=== PATIENT | female | born 1955 | race American Indian/Alaskan Native ===

== ENCOUNTER 2018-10-02 09:51 | Inpatient (IN) | payer OTHER ==
--- NOTE | 2018-10-02 10:49 | XRay Report ---
CHEST 1 VIEW INDICATION / CLINICAL INFORMATION: Chest Pain. COMPARISON: None available. FINDINGS: SUPPORT DEVICES: None. HEART / MEDIASTINUM: Moderately enlarged LUNGS / PLEURA: There is venous congestion with interstitial edema and trace effusions likely due to developing heart failure. No pneumothorax. ADDITIONAL FINDINGS: No significant additional findings. IMPRESSION: 1. Early heart failure. Signer Name: Jonny Marie MD Signed: 10/02/2018 10:45 AM Workstation Name: [id number]
--- NOTE | 2018-10-02 11:05 | Emergency Department Report ---
ED Chest Pain HPI - General Chief Complaint: Chest Pain Stated Complaint: SOB Time Seen by Provider: 10/02/18 10:13 Source: patient Mode of arrival: Ambulatory Limitations: No Limitations - History of Present Illness Initial Comments: This is a 63-year-old female who describes exertional dyspnea for the past 2-3 weeks. She has not sought out medical attention she states due to economic factors. She is not compliant with medicines for hypertension for the same reason. She states that she has been coughing white sputum and therefore thinks she has no infection. However she has not experienced fever or chills. She does not complain of chest pain. - Related Data Allergies Allergy/AdvReac Type Severity Reaction Status Date / Time No Known Allergies Allergy Unverified 10/02/18 09:57 ED Review of Systems ROS: Stated complaint: SOB Other details as noted in HPI ED Physical Exam - General Limitations: No Limitations Critical care attestation.: If time is entered above; I have spent that time in minutes in the direct care of this critically ill patient, excluding procedure time. ED Disposition Condition: Stable
[2018-10-02] MEDS ORDERED: NORMODYNE IV ONE ×2 (11:06→13:31)
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
[2018-10-02 11:18] LABS: Albumin 3.9 g/dL (3.9-5); BUN/Creatinine Ratio 20; Blood Urea Nitrogen 18 mg/dL (7-17); Calcium 9.2 mg/dL (8.4-10.2); Hemolysis Index 334
[2018-10-02 11:20] LABS: Basophils # (Auto) 0.1 K/mm3 (0.0-0.1); Basophils % (Auto) 1.4 % (0.0-1.8); Eosinophils # (Auto) 0.1 K/mm3 (0.0-0.4); Eosinophils % (Auto) 1.1 % (0.0-4.3); Hematocrit 39.9 % (30.3-42.9); Hemoglobin 13.1 gm/dl (10.1-14.3); Lymphocytes # (Auto) 1.8 K/mm3 (1.2-5.4); Lymphocytes % (Auto) 28.2 % (13.4-35.0); Mean Corpuscular HGB Conc 33 % (30-34); Mean Corpuscular Volume 90 fl (79-97); Monocytes # (Auto) 0.5 K/mm3 (0.0-0.8); Monocytes % (Auto) 7.9 % (0.0-7.3); Platelet Count 286 K/mm3 (140-440); Red Blood Count 4.44 M/mm3 (3.65-5.03); Red Cell Distribution Width 18.9 % (13.2-15.2)
[2018-10-02 11:29] LABS: INR 1.08 (0.87-1.13)
[2018-10-02 11:30] LABS: Partial Thromboplastin Time 22.4 Sec. (24.2-36.6)
[2018-10-02 11:31] LABS: Free T4 (Free Thyroxine) 1.49 ng/dL (0.76-1.46)
[2018-10-02 11:42] LABS: Bilirubin,Direct < 0.2 mg/dL (0-0.2)
[2018-10-02 11:47] LABS: Alanine Aminotransferase 18 units/L (7-56)
[2018-10-02] MEDS ORDERED: KIONEX PO ONE (11:51)
[2018-10-02] MEDS ORDERED: LASIX IV ONE (11:51)
[2018-10-02] MEDS ORDERED: ASPIRIN PO SCH (13:00)
[2018-10-02 17:50] LABS: BUN/Creatinine Ratio 18; Blood Urea Nitrogen 18 mg/dL (7-17); Calcium 9.2 mg/dL (8.4-10.2); Hemolysis Index 4
[2018-10-02] MEDS ORDERED: IBUPROFEN PO PRN (19:19)
[2018-10-02] MEDS ORDERED: SODIUM CHLORIDE FLUSH SYRINGE 10 ML IV PRN ×2 (19:19→22:28)
[2018-10-02] MEDS ORDERED: TYLENOL PO PRN ×2 (19:19→22:28)
[2018-10-02] MEDS ORDERED: ZOFRAN IV PRN ×2 (19:19→22:28)
[2018-10-02] MEDS ORDERED: DILAUDID IV PRN (19:19)
[2018-10-02] MEDS: K-DUR PO SCH (21:44)
[2018-10-02] MEDS: PEPCID PO SCH (21:44)
[2018-10-02] MEDS: COZAAR PO SCH (21:44)
[2018-10-02] MEDS: BABY ASPIRIN PO SCH (21:46)
[2018-10-02] MEDS ORDERED: COREG PO SCH (22:00)
[2018-10-02] MEDS ORDERED: SODIUM CHLORIDE FLUSH SYRINGE 10 ML IV SCH (22:00)
--- NOTE | 2018-10-02 22:19 | History and Physical Report ---
History of Present Illness Date of examination: 10/02/18 Date of admission: 10/02/18 11:56 Chief complaint: Shortness of breath for 1 month more so for the last 2 days History of present illness: 63-year-old -[place] female with history of hypertension comes in for shortness of breath of one month duration. Worsening shortness of breath for the last 2 days. Orthopnea present. Patient getting more short of breath for last 2 days. Getting short of breath on walking even for a few feet. No fever or chills. Patient not taking any blood pressure medications because of economic reasons. No chest pain. Patient does class IV NYHA symptoms. No history of CHF in the past Past Medical History Hypertension: No Surgical History Additional Surgical History: Varicose vein surgery Social History Smoking Status: Former Smoker Substance Use Type: None Family history Htn Review of Systems ROS: Stated complaint: SOB Other details as noted in HPI Constitutional: denies: chills, fever Eyes: denies: eye pain, eye discharge, vision change ENT: denies: ear pain, throat pain Respiratory: cough, shortness of breath on exertion and lying down denies: wheezing Cardiovascular: denies: chest pain, palpitations shortness of breath on exertion Endocrine: no symptoms reported Gastrointestinal: denies: abdominal pain, nausea, diarrhea Genitourinary: denies: urgency, dysuria, discharge Musculoskeletal: denies: back pain, joint swelling, arthralgia Skin: denies: rash, lesions Neurological: denies: headache, weakness, paresthesias Psychiatric: denies: anxiety, depression Hematological/Lymphatic: denies: easy bleeding, easy bruising Medications and Allergies Allergies Allergy/AdvReac Type Severity Reaction Status Date / Time No Known Allergies Allergy Unverified 10/02/18 09:57 Home Medications Medication Instructions Recorded Confirmed Last Taken Type Aspirin [Aspirin BABY CHEW TAB] 81 mg PO DAILY 10/02/18 10/02/18 Unknown History Active Meds: Active Medications Acetaminophen (Tylenol) 650 mg PO Q4H PRN PRN Reason: Pain MILD(1-3)/Fever >100.5/[place] Aspirin (Baby Aspirin) 81 mg PO DAILY [facility] Last Admin: 10/02/18 21:46 Dose: 81 mg Documented by: Carvedilol (Coreg) 3.125 mg PO BID [facility] Last Admin: 10/02/18 21:44 Dose: 3.125 mg Documented by: Famotidine (Pepcid) 20 mg PO BID [facility] Last Admin: 10/02/18 21:44 Dose: 20 mg Documented by: Furosemide (Lasix) 40 mg IV 0600,1800 [facility] Hydromorphone HCl (Dilaudid) 0.5 mg IV Q3H PRN PRN Reason: Pain , Severe (7-10) Ibuprofen (Ibuprofen) 600 mg PO Q6H PRN PRN Reason: Pain, Mild (1-3) Losartan Potassium (Cozaar) 100 mg PO QDAY [facility] Last Admin: 10/02/18 21:44 Dose: 100 mg Documented by: Ondansetron HCl (Zofran) 4 mg IV Q8H PRN PRN Reason: Nausea And Vomiting Potassium Chloride (K-Dur) 20 meq PO Q12H [facility] Last Admin: 10/02/18 21:44 Dose: 20 meq Documented by: Sodium Chloride (Sodium Chloride Flush Syringe 10 Ml) 10 ml IV BID [facility] Last Admin: 10/02/18 21:44 Dose: 10 ml Documented by: Sodium Chloride (Sodium Chloride Flush Syringe 10 Ml) 10 ml IV PRN PRN PRN Reason: LINE FLUSH Exam - Constitutional Vitals: Temp Pulse Resp BP Pulse Ox 98.2 F 95 H 18 152/93 88 10/02/18 16:51 10/02/18 16:51 10/02/18 16:51 10/02/18 16:51 10/02/18 16:51 General appearance: Present: mild distress, well-nourished - EENT Eyes: Present: PERRL ENT: hearing intact, clear oral mucosa - Neck Neck: Present: supple, normal ROM - Respiratory Respiratory effort: normal Respiratory: bilateral: CTA, rales (scattered) - Cardiovascular Heart rate: 114 Rhythm: regular Heart Sounds: Present: S1 & S2. Absent: rub, click - Extremities Extremities: no ischemia, pulses intact, pulses symmetrical, No edema Extremity abnormal: other (no pedal edema) Peripheral Pulses: within normal limits - Abdominal General gastrointestinal: Present: soft, non-tender, non-distended, normal bowel sounds Female genitourinary: Present: normal - Rectal Rectal Exam: deferred - Integumentary Integumentary: Present: clear, warm, dry - Musculoskeletal Musculoskeletal: gait normal, strength equal bilaterally - Psychiatric Psychiatric: appropriate mood/affect, intact judgment & insight - Neurologic Neurologic: CNII-XII intact, moves all extremities - Allied Health Allied health notes reviewed: nursing, case management Results - Labs CBC & Chem 7: 10/02/18 10:38 10/02/18 16:50 Labs: Laboratory Last Values WBC 6.5 K/mm3 (4.5-11.0) 10/02/18 10:38 RBC 4.44 M/mm3 (3.65-5.03) 10/02/18 10:38 Hgb 13.1 gm/dl (10.1-14.3) 10/02/18 10:38 Hct 39.9 % (30.3-42.9) 10/02/18 10:38 MCV 90 fl (79-97) 10/02/18 10:38 MCH 29 pg (28-32) 10/02/18 10:38 MCHC 33 % (30-34) 10/02/18 10:38 RDW 18.9 % (13.2-15.2) H 10/02/18 10:38 Plt Count 286 K/mm3 (140-440) 10/02/18 10:38 Lymph % (Auto) 28.2 % (13.4-35.0) 10/02/18 10:38 [place] % (Auto) 7.9 % (0.0-7.3) H 10/02/18 10:38 Eos % (Auto) 1.1 % (0.0-4.3) 10/02/18 10:38 Baso % (Auto) 1.4 % (0.0-1.8) 10/02/18 10:38 Lymph # 1.8 K/mm3 (1.2-5.4) 10/02/18 10:38 [place] # 0.5 K/mm3 (0.0-0.8) 10/02/18 10:38 Eos # 0.1 K/mm3 (0.0-0.4) 10/02/18 10:38 Baso # 0.1 K/mm3 (0.0-0.1) 10/02/18 10:38 Seg Neutrophils % 61.4 % (40.0-70.0) 10/02/18 10:38 Seg Neutrophils # 4.0 K/mm3 (1.8-7.7) 10/02/18 10:38 PT 13.7 Sec. (12.2-14.9) 10/02/18 10:38 INR 1.08 (0.87-1.13) 10/02/18 10:38 APTT 22.4 Sec. (24.2-36.6) L 10/02/18 10:38 POC ABG pH 7.437 (7.35-7.45) 10/02/18 11:04 POC ABG pCO2 31.0 (35-45) L 10/02/18 11:04 POC ABG HCO3 20.9 (22-26 mml/L) 10/02/18 11:04 POC ABG Total CO2 22 (23-27mmol/L) 10/02/18 11:04 POC ABG O2 Sat 85 10/02/18 11:04 POC ABG Base Excess -3 ((-2) - (+3)mmol/L) 10/02/18 11:04 21 % 10/02/18 11:04 Sodium 143 mmol/L (137-145) 10/02/18 16:50 Potassium 3.7 mmol/L (3.6-5.0) D 10/02/18 16:50 Chloride 106.3 mmol/L (98-107) 10/02/18 16:50 Carbon Dioxide 24 mmol/L (22-30) 10/02/18 16:50 16 mmol/L 10/02/18 16:50 BUN 18 mg/dL (7-17) H 10/02/18 16:50 1.0 mg/dL (0.7-1.2) 10/02/18 16:50 Estimated GFR > 60 ml/min 10/02/18 16:50 18 % 10/02/18 16:50 Glucose 107 mg/dL (65-100) H 10/02/18 16:50 5.3 % (4-6) 10/02/18 19:45 Calcium 9.2 mg/dL (8.4-10.2) 10/02/18 16:50 Magnesium 1.90 mg/dL (1.7-2.3) 10/02/18 10:38 0.90 mg/dL (0.1-1.2) 10/02/18 10:38 < 0.2 mg/dL (0-0.2) 10/02/18 10:38 0.7 mg/dL 10/02/18 10:38 AST 42 units/L (5-40) H 10/02/18 10:38 ALT 18 units/L (7-56) 10/02/18 10:38 91 units/L (35-129) 10/02/18 10:38 87 units/L (30-135) 10/02/18 10:38 CK-MB (CK-2) 2.0 ng/mL (0.0-4.0) 10/02/18 10:38 CK-MB (CK-2) Rel Index 2.2 (0-4) 10/02/18 10:38 < 0.010 ng/mL (0.00-0.029) 10/02/18 19:45 NT-Pro-B Natriuret Pep 3872 pg/mL (0-900) H 10/02/18 10:38 8.2 g/dL (6.3-8.2) 10/02/18 10:38 3.9 g/dL (3.9-5) 10/02/18 10:38 0.9 % 10/02/18 10:38 TSH 2.410 mlU/mL (0.270-4.200) 10/02/18 10:38 Free T4 1.49 ng/dL (0.76-1.46) H 10/02/18 10:38 Short CBC 10/02/18 Range/Units 10:38 WBC 6.5 (4.5-11.0) K/mm3 Hgb 13.1 (10.1-14.3) gm/dl Hct 39.9 (30.3-42.9) % Plt Count 286 (140-440) K/mm3 BMP 10/02/18 10/02/18 10:38 16:50 Sodium 141 143 Potassium 5.9 H 3.7 D Chloride 105.8 106.3 Carbon Dioxide 21 L 24 BUN 18 H 18 H Creatinine 0.9 1.0 Glucose 104 H 107 H Calcium 9.2 9.2 Cardiac Enzymes 10/02/18 10/02/18 10/02/18 Range/Units 10:38 16:50 19:45 Total Creatine Kinase 87 (30-135) units/L CK-MB (CK-2) 2.0 (0.0-4.0) ng/mL Troponin T < 0.010 < 0.010 < 0.010 (0.00-0.029) ng/mL Liver Function 10/02/18 Range/Units 10:38 Total Bilirubin 0.90 (0.1-1.2) mg/dL Direct Bilirubin < 0.2 (0-0.2) mg/dL AST 42 H (5-40) units/L ALT 18 (7-56) units/L Alkaline Phosphatase 91 (35-129) units/L Albumin 3.9 (3.9-5) g/dL - Imaging and Cardiology EKG: report reviewed (sinus tachycardia heart rate of 1 14/m no acute ST-T wave changes no LVH) Chest x-ray: report reviewed Imaging and Cardiology: Chest x-ray HEART / MEDIASTINUM: Moderately enlarged LUNGS / PLEURA: There is venous congestion with interstitial edema and trace effusions likely due to developing heart failure. No pneumothorax. ADDITIONAL FINDINGS: No significant additional findings. IMPRESSION: 1. Early heart failure. Assessment and Plan Advance Directives: Yes (full code) VTE prophylaxis?: Chemical Plan of care discussed with patient/family: Yes - Patient Problems (1) Acute exacerbation of CHF (congestive heart failure) Current Visit: Yes Status: Acute Qualifiers: Heart failure type: combined systolic and diastolic Qualified Code(s): I50.43 - Acute on chronic combined systolic (congestive) and diastolic (congestive) heart failure Plan to address problem: IV Lasix 40 mg every 12 Daily weights Daily intake and output Echocardiogram for ejection fraction and valve function (2) Hypertensive emergency Current Visit: Yes Status: Acute Plan to address problem: Patient started on losartan Coreg and amlodipine Hydralazine IV given in the emergency room Hydralazine IV every 3 when necessary Compliance counseled (3) Obesity Current Visit: Yes Status: Chronic Qualifiers: Obesity type: due to excess calories Plan to address problem: Counseled To follow up with bariatric surgery as outpatient (4) Hyperkalemia Current Visit: Yes Status: Acute Plan to address problem: Kayexalate given in the emergency room Recheck the potassium level Etiology unclear (5) DVT prophylaxis Current Visit: Yes Status: Acute Plan to address problem: On Lovenox and GI prophylaxis
[2018-10-02] MEDS ORDERED: PERCOCET 5/325 PO PRN (22:28)
[2018-10-02] MEDS ORDERED: APRESOLINE IV PRN (22:33)
[2018-10-03 04:13] LABS: Basophils # (Auto) 0.1 K/mm3 (0.0-0.1); Basophils % (Auto) 1.1 % (0.0-1.8); Eosinophils # (Auto) 0.1 K/mm3 (0.0-0.4); Eosinophils % (Auto) 1.9 % (0.0-4.3); Hematocrit 39.8 % (30.3-42.9); Hemoglobin 13.2 gm/dl (10.1-14.3); Lymphocytes % (Auto) 32.3 % (13.4-35.0); Mean Corpuscular HGB Conc 33 % (30-34); Mean Corpuscular Volume 90 fl (79-97); Monocytes # (Auto) 0.5 K/mm3 (0.0-0.8); Monocytes % (Auto) 7.9 % (0.0-7.3); Platelet Count 276 K/mm3 (140-440); Red Blood Count 4.42 M/mm3 (3.65-5.03); Red Cell Distribution Width 19.3 % (13.2-15.2)
[2018-10-03 04:34] LABS: Albumin 3.9 g/dL (3.9-5); Calcium 8.9 mg/dL (8.4-10.2)
[2018-10-03] MEDS ORDERED: LASIX IV SCH (06:00)
[2018-10-03] MEDS: COZAAR PO SCH (10:23)
[2018-10-03] MEDS: COREG PO SCH ×3 (10:25→21:48)
[2018-10-03] MEDS: PEPCID PO SCH ×2 (10:26→21:43)
[2018-10-03] MEDS: SODIUM CHLORIDE FLUSH SYRINGE 10 ML IV SCH ×2 (10:26→21:42)
[2018-10-03] MEDS: BABY ASPIRIN PO SCH (10:26)
--- NOTE | 2018-10-03 13:32 | Progress Note ---
Assessment and Plan Assessment and plan: Patient is a 63 yo woman with a history of hypertension but not taking any medications, who presents to [facility] ED with SOB. Her blood pressure in ED was as high as 213/111, proBNP was 3872 and pCXR reported Early heart failure. Her potassium level was 5.9 with a Cr of 0.9. She was treated with kayexalate and iv lasix. Cr increase slightly to 1.2. Acute suspected Diastolic heart failure: ECHO pending, treat with iv lasix but reduce dose and repeat Cr level Hypertensive heart disease; medical management Malignant hypertension: started coreg, losartan which are all new to patient. Hyperkalemia, resolved: monitor bmp closely Obesity, bmi 35.7: lifestyle modifications History Interval history: Patient was seen and examined. Follow-up on current diagnosis of CHF. No overnight events reported to me. Patient denies any chest pain, shortness breath, nausea/vomiting or severe headaches. Imaging, nursing note, chart, labs and old chart reviewed. Discussed with patient. She admits to [place] with minimal activity but no sob at rest currently. Hospitalist Physical - Physical exam Narrative exam: Gen: WDWN, NAD, Awake, Alert, Orientated HEENT: NCAT, EOMI, PERRL, OP Clear Neck: supple, no adenopathy, no thyromegaly, no JVD CVS/Heart: RRR, normal S1S2, pulses present bilaterally Chest/Lungs: CTA B, Symmetrical chest expansion, good air entry bilaterally GI/Abdomen: soft, NTND, good bowel sounds, no guarding or rebound /Bladder: no suprapubic tenderness, no CVA or paraspinal tenderness Extermity/Skin: no c/c/e, no obvious rash MSK: FROM x 4 Neuro: CN 2-12 grossly intact, no new focal deficits Psych: calm - Constitutional Vitals: Temp Pulse Resp BP Pulse Ox 98.4 F 95 H 18 136/74 90 10/03/18 07:59 10/03/18 10:25 10/03/18 07:59 10/03/18 07:59 10/03/18 07:59 General appearance: Present: well-nourished. Absent: mild distress Results - Labs CBC & Chem 7: 10/03/18 03:29 10/03/18 03:29 Labs: Laboratory Last Values WBC 6.2 K/mm3 (4.5-11.0) 10/03/18 03:29 RBC 4.42 M/mm3 (3.65-5.03) 10/03/18 03:29 Hgb 13.2 gm/dl (10.1-14.3) 10/03/18 03:29 Hct 39.8 % (30.3-42.9) 10/03/18 03:29 MCV 90 fl (79-97) 10/03/18 03:29 MCH 30 pg (28-32) 10/03/18 03:29 MCHC 33 % (30-34) 10/03/18 03:29 RDW 19.3 % (13.2-15.2) H 10/03/18 03:29 Plt Count 276 K/mm3 (140-440) 10/03/18 03:29 Lymph % (Auto) 32.3 % (13.4-35.0) 10/03/18 03:29 [place] % (Auto) 7.9 % (0.0-7.3) H 10/03/18 03:29 Eos % (Auto) 1.9 % (0.0-4.3) 10/03/18 03:29 Baso % (Auto) 1.1 % (0.0-1.8) 10/03/18 03:29 Lymph # 2.0 K/mm3 (1.2-5.4) 10/03/18 03:29 [place] # 0.5 K/mm3 (0.0-0.8) 10/03/18 03:29 Eos # 0.1 K/mm3 (0.0-0.4) 10/03/18 03:29 Baso # 0.1 K/mm3 (0.0-0.1) 10/03/18 03:29 Seg Neutrophils % 56.8 % (40.0-70.0) 10/03/18 03:29 Seg Neutrophils # 3.5 K/mm3 (1.8-7.7) 10/03/18 03:29 PT 13.7 Sec. (12.2-14.9) 10/02/18 10:38 INR 1.08 (0.87-1.13) 10/02/18 10:38 APTT 22.4 Sec. (24.2-36.6) L 10/02/18 10:38 POC ABG pH 7.437 (7.35-7.45) 10/02/18 11:04 POC ABG pCO2 31.0 (35-45) L 10/02/18 11:04 POC ABG HCO3 20.9 (22-26 mml/L) 10/02/18 11:04 POC ABG Total CO2 22 (23-27mmol/L) 10/02/18 11:04 POC ABG O2 Sat 85 10/02/18 11:04 POC ABG Base Excess -3 ((-2) - (+3)mmol/L) 10/02/18 11:04 21 % 10/02/18 11:04 Sodium 145 mmol/L (137-145) 10/03/18 03:29 Potassium 3.7 mmol/L (3.6-5.0) 10/03/18 03:29 Chloride 106.9 mmol/L (98-107) 10/03/18 03:29 Carbon Dioxide 24 mmol/L (22-30) 10/03/18 03:29 18 mmol/L 10/03/18 03:29 BUN 22 mg/dL (7-17) H 10/03/18 03:29 1.2 mg/dL (0.7-1.2) 10/03/18 03:29 Estimated GFR 55 ml/min 10/03/18 03:29 18 % 10/03/18 03:29 Glucose 104 mg/dL (65-100) H 10/03/18 03:29 5.3 % (4-6) 10/02/18 19:45 Calcium 8.9 mg/dL (8.4-10.2) 10/03/18 03:29 Magnesium 1.90 mg/dL (1.7-2.3) 10/02/18 10:38 0.90 mg/dL (0.1-1.2) 10/03/18 03:29 < 0.2 mg/dL (0-0.2) 10/02/18 10:38 0.7 mg/dL 10/02/18 10:38 AST 17 units/L (5-40) 10/03/18 03:29 ALT 12 units/L (7-56) 10/03/18 03:29 98 units/L (35-129) 10/03/18 03:29 87 units/L (30-135) 10/02/18 10:38 CK-MB (CK-2) 2.0 ng/mL (0.0-4.0) 10/02/18 10:38 CK-MB (CK-2) Rel Index 2.2 (0-4) 10/02/18 10:38 < 0.010 ng/mL (0.00-0.029) 10/03/18 03:29 NT-Pro-B Natriuret Pep 3872 pg/mL (0-900) H 10/02/18 10:38 7.8 g/dL (6.3-8.2) 10/03/18 03:29 3.9 g/dL (3.9-5) 10/03/18 03:29 1.0 % 10/03/18 03:29 TSH 2.410 mlU/mL (0.270-4.200) 10/02/18 10:38 Free T4 1.49 ng/dL (0.76-1.46) H 10/02/18 10:38 Active Medications - Current Medications Current Medications: Generic Name Dose Route Start Last Admin Trade Name Freq PRN Reason Stop Dose Admin Acetaminophen 650 mg 10/02/18 22:28 Tylenol PO Q4H PRN Pain MILD(1-3)/Fever >100.5/[place] Aspirin 81 mg 10/02/18 20:00 10/03/18 10:26 Baby Aspirin PO 81 mg DAILY [facility] Administration Carvedilol 12.5 mg 10/02/18 22:34 10/03/18 10:25 Coreg PO 12.5 mg BID SUAD Administration Famotidine 20 mg 10/02/18 22:00 10/03/18 10:26 Pepcid PO 20 mg BID SUAD Administration Furosemide 40 mg 10/04/18 10:00 Lasix IV QDAY SUAD Hydralazine HCl 10 mg 10/02/18 22:33 Apresoline IV Q3H PRN Blood Pressure Hydromorphone HCl 0.5 mg 10/02/18 19:19 Dilaudid IV Q3H PRN Pain , Severe (7-10) Losartan Potassium 100 mg 10/02/18 20:00 10/03/18 10:23 Cozaar PO 100 mg QDAY SUAD Administration Ondansetron HCl 4 mg 10/02/18 22:28 Zofran IV Q8H PRN Nausea And Vomiting Oxycodone/Acetaminophen 1 tab 10/02/18 22:28 Percocet 5/325 PO Q6H PRN Pain, Moderate (4-6) Sodium Chloride 10 ml 10/03/18 10:00 10/03/18 10:26 Sodium Chloride Flush Syringe 10 Ml IV 10 ml BID SUAD Administration Sodium Chloride 10 ml 10/02/18 22:28 Sodium Chloride Flush Syringe 10 Ml IV PRN PRN LINE FLUSH
--- NOTE | 2018-10-03 13:37 | Consultation ---
History of Present Illness Consult date: 10/03/18 Requesting physician: REEMA ROSARIO Consult reason: congestive heart failure History of present illness: The patient presents with 1 month h/o exertional dyspnea with orthopnea. She also complains of intermittent substernal chest tightness. Although she has HTN, she claims that she has been unable to afford her meds for the past 2 years. Past History Past Medical History: hypertension Past Surgical History: Other (Vascular neck surgery due to traumatic injury.) Social history: smoking. denies: alcohol abuse Family history: no significant family history Medications and Allergies Allergies Allergy/AdvReac Type Severity Reaction Status Date / Time No Known Allergies Allergy Unverified 10/02/18 09:57 Home Medications Medication Instructions Recorded Confirmed Last Taken Type Aspirin [Aspirin BABY CHEW TAB] 81 mg PO DAILY 10/02/18 10/02/18 Unknown History Active Meds: Active Medications Acetaminophen (Tylenol) 650 mg PO Q4H PRN PRN Reason: Pain MILD(1-3)/Fever >100.5/[place] Aspirin (Baby Aspirin) 81 mg PO DAILY [facility] Last Admin: 10/03/18 10:26 Dose: 81 mg Documented by: Carvedilol (Coreg) 12.5 mg PO BID [facility] Last Admin: 10/03/18 10:25 Dose: 12.5 mg Documented by: Famotidine (Pepcid) 20 mg PO BID [facility] Last Admin: 10/03/18 10:26 Dose: 20 mg Documented by: Furosemide (Lasix) 40 mg IV QDAY [facility] Hydralazine HCl (Apresoline) 10 mg IV Q3H PRN PRN Reason: Blood Pressure Hydromorphone HCl (Dilaudid) 0.5 mg IV Q3H PRN PRN Reason: Pain , Severe (7-10) Losartan Potassium (Cozaar) 100 mg PO QDAY [facility] Last Admin: 10/03/18 10:23 Dose: 100 mg Documented by: Ondansetron HCl (Zofran) 4 mg IV Q8H PRN PRN Reason: Nausea And Vomiting Oxycodone/Acetaminophen (Percocet 5/325) 1 tab PO Q6H PRN PRN Reason: Pain, Moderate (4-6) Sodium Chloride (Sodium Chloride Flush Syringe 10 Ml) 10 ml IV BID [facility] Last Admin: 10/03/18 10:26 Dose: 10 ml Documented by: Sodium Chloride (Sodium Chloride Flush Syringe 10 Ml) 10 ml IV PRN PRN PRN Reason: LINE FLUSH Review of Systems Constitutional: no fever, no chills Ears, nose, mouth and throat: no ear pain, no ear discharge, no sore throat Cardiovascular: chest pain, orthopnea, shortness of breath, dyspnea on exertion, no palpitations, no lightheadedness Respiratory: shortness of breath, dyspnea on exertion, no cough, no hemoptysis Gastrointestinal: no abdominal pain, no nausea, no vomiting, no diarrhea, no constipation Genitourinary Female: no dysuria, no urinary frequency Rectal: no pain, no bleeding Musculoskeletal: no neck stiffness, no neck pain, no myalgias Integumentary: no rash, no pruritis Neurological: no weakness, no parathesias, no numbness, no tingling, no headaches Endocrine: no cold intolerance, no heat intolerance Hematologic/Lymphatic: no easy bruising, no easy bleeding Allergic/Immunologic: no urticaria, no wheezing Physical Examination Vital Signs Last Vital Signs Temp 98.4 F 10/03/18 07:59 Pulse 95 H 10/03/18 10:25 Resp 18 10/03/18 07:59 BP 136/74 10/03/18 07:59 Pulse Ox 90 10/03/18 07:59 General appearance: no acute distress HEENT: Positive: EOMI, Normocephaly, Mucus Membranes Moist Neck: Positive: neck supple, trachea midline, JVD/HJR Cardiac: Positive: Reg Rate and Rhythm, S1/S2 Lungs: Positive: clear to auscultation Neuro: Positive: Grossly Intact Abdomen: Positive: Soft, Active Bowel Sounds. Negative: Tender Skin: Positive: Clear. Negative: Rash Musculoskeletal: Normal Range of Motion Extremities: Present: normal. Absent: edema Results 10/03/18 03:29 10/03/18 03:29 Cardiac Enzymes 10/03/18 Range/Units 03:29 AST 17 (5-40) units/L CBC 10/03/18 Range/Units 03:29 WBC 6.2 (4.5-11.0) K/mm3 RBC 4.42 (3.65-5.03) M/mm3 Hgb 13.2 (10.1-14.3) gm/dl Hct 39.8 (30.3-42.9) % Plt Count 276 (140-440) K/mm3 Lymph # 2.0 (1.2-5.4) K/mm3 Bent # 0.5 (0.0-0.8) K/mm3 Eos # 0.1 (0.0-0.4) K/mm3 Baso # 0.1 (0.0-0.1) K/mm3 Comprehensive Metabolic Panel 10/02/18 10/03/18 Range/Units 16:50 03:29 Sodium 143 145 (137-145) mmol/L Potassium 3.7 D 3.7 (3.6-5.0) mmol/L Chloride 106.3 106.9 (98-107) mmol/L Carbon Dioxide 24 24 (22-30) mmol/L BUN 18 H 22 H (7-17) mg/dL Creatinine 1.0 1.2 (0.7-1.2) mg/dL Glucose 107 H 104 H (65-100) mg/dL Calcium 9.2 8.9 (8.4-10.2) mg/dL AST 17 (5-40) units/L ALT 12 (7-56) units/L Alkaline Phosphatase 98 (35-129) units/L Total Protein 7.8 (6.3-8.2) g/dL Albumin 3.9 (3.9-5) g/dL - Imaging and Cardiology EKG: image reviewed EKG interpretations - Telemetry EKG Rhythm: Sinus Tachycardia Assessment and Plan I agree with her current regimen. Obtain echo. Lexiscan stress MPI in am. - Patient Problems (1) Acute heart failure Current Visit: Yes Status: Acute (2) Chest pain Current Visit: Yes Status: Acute (3) Hypertensive emergency Current Visit: Yes Status: Acute (4) Obesity Current Visit: Yes Status: Chronic Qualifiers: Obesity type: due to excess calories
[2018-10-03] MEDS ORDERED: NACL 0.9% 500 ML 500 ML IV SCH (16:00)
[2018-10-03] MEDS: K-DUR PO SCH (19:59)
[2018-10-04 05:43] LABS: INR 1.15 (0.87-1.13)
[2018-10-04 05:44] LABS: Partial Thromboplastin Time 22.8 Sec. (24.2-36.6)
[2018-10-04 06:02] LABS: Calcium 8.7 mg/dL (8.4-10.2)
--- NOTE | 2018-10-04 07:36 | Progress Note ---
Assessment and Plan Assessment and plan: Patient is a 63 yo woman with a history of hypertension but not taking any medications, who presents to [facility] ED with SOB. Her blood pressure in ED was as high as 213/111, proBNP was 3872 and pCXR reported Early heart failure. Her potassium level was 5.9 with a Cr of 0.9. She was treated with kayexalate and iv lasix. Cr increase slightly to 1.2, so lasix iv reduce to once a day but today Cr increased more to 1.9. * 2D ECHO Conclusions: The left atrium is moderate to severely dilated, mild MR, moderate TR, LV moderately dilated, global LVSF is severely decreased, estimated EF 25-30%, LV diastolif filling is c/w pseudonormalization, RV mildly dilated, RVSF mildly reduced, moderate Pulmonary hypertension, RVSP calculated at 56 mmhg. Acute combined heart failure: ECHO reviewed as above, treat with iv lasix but reduced dose and repeat Cr level, which now is 1.9 ARF, vasomotor nephropathy, cr up to 1.9; stop iv lasix, consulted Nephrology Hypertensive heart disease; medical management Malignant hypertension: started coreg, losartan which are all new to patient. Hyperkalemia, resolved: monitor bmp closely Obesity, bmi 35.7: lifestyle modifications Disposition: continue inpatient care, ischemic work up for new Cardiomyopathy, unlikely to do [facility] today because CR up to 1.9. stopped iv lasix, she did receive one dose yesterday, also stopped the Losartan. Possible restart once ARF resolves. History Interval history: Patient was seen and examined. Follow-up on current diagnosis of CHF. No over night events reported to me. Patient denies any chest pain, shortness breath, nausea/vomiting or severe headaches. Imaging, nursing note, chart, labs and old chart reviewed. Discussed with patient. She admits to [place] with minimal activity but no sob at rest currently. Hospitalist Physical - Physical exam Narrative exam: Gen: WDWN, NAD, Awake, Alert, Orientated HEENT: NCAT, EOMI, PERRL, OP Clear Neck: supple, no adenopathy, no thyromegaly, no JVD CVS/Heart: RRR, normal S1S2, pulses present bilaterally Chest/Lungs: CTA B, Symmetrical chest expansion, good air entry bilaterally GI/Abdomen: soft, NTND, good bowel sounds, no guarding or rebound /Bladder: no suprapubic tenderness, no CVA or paraspinal tenderness Extermity/Skin: no c/c/e, no obvious rash MSK: FROM x 4 Neuro: CN 2-12 grossly intact, no new focal deficits Psych: calm - Constitutional Vitals: Temp Pulse Resp BP Pulse Ox 97.3 F L 83 14 128/70 88 10/04/18 03:33 10/04/18 05:00 10/04/18 03:33 10/04/18 03:33 10/04/18 03:33 General appearance: Present: no acute distress Results - Labs CBC & Chem 7: 10/03/18 03:29 10/04/18 04:49 Labs: Laboratory Last Values WBC 6.2 K/mm3 (4.5-11.0) 10/03/18 03:29 RBC 4.42 M/mm3 (3.65-5.03) 10/03/18 03:29 Hgb 13.2 gm/dl (10.1-14.3) 10/03/18 03:29 Hct 39.8 % (30.3-42.9) 10/03/18 03:29 MCV 90 fl (79-97) 10/03/18 03:29 MCH 30 pg (28-32) 10/03/18 03:29 MCHC 33 % (30-34) 10/03/18 03:29 RDW 19.3 % (13.2-15.2) H 10/03/18 03:29 Plt Count 276 K/mm3 (140-440) 10/03/18 03:29 Lymph % (Auto) 32.3 % (13.4-35.0) 10/03/18 03:29 [place] % (Auto) 7.9 % (0.0-7.3) H 10/03/18 03:29 Eos % (Auto) 1.9 % (0.0-4.3) 10/03/18 03:29 Baso % (Auto) 1.1 % (0.0-1.8) 10/03/18 03:29 Lymph # 2.0 K/mm3 (1.2-5.4) 10/03/18 03:29 [place] # 0.5 K/mm3 (0.0-0.8) 10/03/18 03:29 Eos # 0.1 K/mm3 (0.0-0.4) 10/03/18 03:29 Baso # 0.1 K/mm3 (0.0-0.1) 10/03/18 03:29 Seg Neutrophils % 56.8 % (40.0-70.0) 10/03/18 03:29 Seg Neutrophils # 3.5 K/mm3 (1.8-7.7) 10/03/18 03:29 PT 14.4 Sec. (12.2-14.9) 10/04/18 04:49 INR 1.15 (0.87-1.13) H 10/04/18 04:49 APTT 22.8 Sec. (24.2-36.6) L 10/04/18 04:49 POC ABG pH 7.437 (7.35-7.45) 10/02/18 11:04 POC ABG pCO2 31.0 (35-45) L 10/02/18 11:04 POC ABG HCO3 20.9 (22-26 mml/L) 10/02/18 11:04 POC ABG Total CO2 22 (23-27mmol/L) 10/02/18 11:04 POC ABG O2 Sat 85 10/02/18 11:04 POC ABG Base Excess -3 ((-2) - (+3)mmol/L) 10/02/18 11:04 21 % 10/02/18 11:04 Sodium 147 mmol/L (137-145) H 10/04/18 04:49 Potassium 4.1 mmol/L (3.6-5.0) 10/04/18 04:49 Chloride 106.2 mmol/L (98-107) 10/04/18 04:49 Carbon Dioxide 26 mmol/L (22-30) 10/04/18 04:49 19 mmol/L 10/04/18 04:49 BUN 31 mg/dL (7-17) H 10/04/18 04:49 1.9 mg/dL (0.7-1.2) H D 10/04/18 04:49 Estimated GFR 32 ml/min 10/04/18 04:49 16 % 10/04/18 04:49 Glucose 109 mg/dL (65-100) H 10/04/18 04:49 POC Glucose 112 (70-105) H 10/03/18 21:18 5.3 % (4-6) 10/02/18 19:45 Calcium 8.7 mg/dL (8.4-10.2) 10/04/18 04:49 Magnesium 1.90 mg/dL (1.7-2.3) 10/02/18 10:38 0.90 mg/dL (0.1-1.2) 10/03/18 03:29 < 0.2 mg/dL (0-0.2) 10/02/18 10:38 0.7 mg/dL 10/02/18 10:38 AST 17 units/L (5-40) 10/03/18 03:29 ALT 12 units/L (7-56) 10/03/18 03:29 98 units/L (35-129) 10/03/18 03:29 87 units/L (30-135) 10/02/18 10:38 CK-MB (CK-2) 2.0 ng/mL (0.0-4.0) 10/02/18 10:38 CK-MB (CK-2) Rel Index 2.2 (0-4) 10/02/18 10:38 < 0.010 ng/mL (0.00-0.029) 10/03/18 03:29 NT-Pro-B Natriuret Pep 3872 pg/mL (0-900) H 10/02/18 10:38 7.8 g/dL (6.3-8.2) 10/03/18 03:29 3.9 g/dL (3.9-5) 10/03/18 03:29 1.0 % 10/03/18 03:29 TSH 2.410 mlU/mL (0.270-4.200) 10/02/18 10:38 Free T4 1.49 ng/dL (0.76-1.46) H 10/02/18 10:38 Active Medications - Current Medications Current Medications: Generic Name Dose Route Start Last Admin Trade Name Freq PRN Reason Stop Dose Admin Acetaminophen 650 mg 10/02/18 22:28 Tylenol PO Q4H PRN Pain MILD(1-3)/Fever >100.5/[place] Aspirin 81 mg 10/02/18 20:00 10/03/18 10:26 Baby Aspirin PO 81 mg DAILY SUAD Administration Carvedilol 12.5 mg 10/02/18 22:34 10/03/18 21:48 Coreg PO 12.5 mg BID SUAD Administration Famotidine 20 mg 10/02/18 22:00 10/03/18 21:43 Pepcid PO 20 mg BID SUAD Administration Furosemide 40 mg 10/04/18 10:00 Lasix IV QDAY SUAD Hydromorphone HCl 0.5 mg 10/02/18 19:19 Dilaudid IV Q3H PRN Pain , Severe (7-10) Losartan Potassium 100 mg 10/02/18 20:00 10/03/18 10:23 Cozaar PO 100 mg QDAY SUAD Administration Ondansetron HCl 4 mg 10/02/18 22:28 Zofran IV Q8H PRN Nausea And Vomiting Oxycodone/Acetaminophen 1 tab 10/02/18 22:28 Percocet 5/325 PO Q6H PRN Pain, Moderate (4-6) Regadenoson 0.4 mg 10/04/18 07:10 Lexiscan IV 10/04/18 07:11 ONCE ONE Sodium Chloride 10 ml 10/03/18 10:00 10/03/18 21:42 Sodium Chloride Flush Syringe 10 Ml IV 10 ml BID SUAD Administration Sodium Chloride 10 ml 10/02/18 22:28 Sodium Chloride Flush Syringe 10 Ml IV PRN PRN LINE FLUSH
[2018-10-04] MEDS ORDERED: LEXISCAN IV ONE ×2 (08:00→12:38)
[2018-10-04] MEDS: COREG PO SCH ×2 (09:54→23:00)
[2018-10-04] MEDS: BABY ASPIRIN PO SCH (09:55)
[2018-10-04] MEDS: PEPCID PO SCH (09:55)
[2018-10-04] MEDS: SODIUM CHLORIDE FLUSH SYRINGE 10 ML IV SCH ×2 (09:56→23:01)
[2018-10-04] MEDS ORDERED: LASIX IV SCH (10:00)
--- NOTE | 2018-10-04 12:40 | Consultation ---
History of Present Illness - Reason for Consult Consult date: 10/04/18 - History of Present Illness This is a 63 y/o F with PMH of HTN who presented to [facility] with c/o shortness of breath for the past month, but noticed worsening shortness of breath over the past 2 days prior to admission and chest tightness. Pt currently not taking her anti-hypertensive medications due to financial reasons. On admission, SCr level was 0.9, progressively worsening, today's SCr level was 1.9. Cardiology on mirza rj, stress test today, holding off on C due to worsening renal function. Lasix and losartan already stopped due to worsening MEHRDAD. We were consulted to evaluate this pt who has MEHRDAD. Pt seen in Cardiology suite for stress test, pt states she wouldn't take NSAIDs very often, maybe once every couple of weeks. No acute distress Past History Past Medical History: hypertension Past Surgical History: Other (Vascular neck surgery due to traumatic injury.) Social history: smoking. denies: alcohol abuse Family history: no significant family history Medications and Allergies Allergies Allergy/AdvReac Type Severity Reaction Status Date / Time No Known Allergies Allergy Unverified 10/02/18 09:57 Home Medications Medication Instructions Recorded Confirmed Last Taken Type Aspirin [Aspirin BABY CHEW TAB] 81 mg PO DAILY 10/02/18 10/02/18 Unknown History Active Meds: Active Medications Acetaminophen (Tylenol) 650 mg PO Q4H PRN PRN Reason: Pain MILD(1-3)/Fever >100.5/[place] Aspirin (Baby Aspirin) 81 mg PO DAILY [facility] Last Admin: 10/04/18 09:55 Dose: 81 mg Documented by: Carvedilol (Coreg) 12.5 mg PO BID [facility] Last Admin: 10/04/18 09:54 Dose: 12.5 mg Documented by: Famotidine (Pepcid) 20 mg PO DAILY [facility] Hydromorphone HCl (Dilaudid) 0.5 mg IV Q3H PRN PRN Reason: Pain , Severe (7-10) Ondansetron HCl (Zofran) 4 mg IV Q8H PRN PRN Reason: Nausea And Vomiting Oxycodone/Acetaminophen (Percocet 5/325) 1 tab PO Q6H PRN PRN Reason: Pain, Moderate (4-6) Sodium Chloride (Sodium Chloride Flush Syringe 10 Ml) 10 ml IV BID [facility] Last Admin: 10/04/18 09:56 Dose: 10 ml Documented by: Sodium Chloride (Sodium Chloride Flush Syringe 10 Ml) 10 ml IV PRN PRN PRN Reason: LINE FLUSH Review of Systems Constitutional: fatigue, no fever Cardiovascular: shortness of breath, dyspnea on exertion, no chest pain (chest tightness) Respiratory: shortness of breath, dyspnea on exertion Gastrointestinal: no nausea, no vomiting, no diarrhea, no constipation, no hematemesis Integumentary: no sores, no wounds Exam - Vital Signs Vital signs: Vital Signs Temp Pulse Resp BP Pulse Ox 97.9 F 113 H 16 184/110 89 10/02/18 10:16 10/02/18 10:16 10/02/18 10:16 10/02/18 10:16 10/02/18 10:16 - General Appearance General appearance: well-developed EENT: ATNC Neck: Present: neck supple Respiratory: Decreased Breath Sounds Heart: regular, S1S2 Gastrointestinal: Present: normoactive bowel sounds. Absent: tenderness Integumentary: warm and dry Neurologic: alert and oriented x3 Musculoskeletal: Present: other (trace edema to BLE) Psychiatric: cooperative Results - Lab Results 10/03/18 03:29 10/04/18 04:49 Most recent lab results Calcium 8.7 mg/dL (8.4-10.2) 10/04/18 04:49 Magnesium 1.90 mg/dL (1.7-2.3) 10/02/18 10:38 Assessment and Plan Acute combined CHF: - S/p Echo showed EF 25-30%, moderate pulmonary HTN - CXR on 10/02/18 showed early heart failure - Lasix and losartan stopped due to worsening MEHRDAD - On coreg and ASA - Cardiology on board, stress test today, holding off on [facility] due to worsening renal function, f/u recs Acute Kidney Injury possibly prerenal in setting of diuretics, ARBs, ? cardiorenal syndrome, r/o obstruction: Hyperkalemia: - Renal function reviewed, SCr level increased to 1.9 today, yesterday's SCr level was 1.2 - Holding lasix 40 mg IV daily and losartan 100 mg po daily for now in setting of MEHRDAD (both stopped on 10/04/18) - Obtain urine lytes/protein - Check UA and urine eosinophils - Obtain Renal US - Hyperkalemia improved with medical management - Renally dose meds - Drake Catheter: No - Renal plan d/w Dr Grady Hypernatremia: - Serum sodium level was 147 today - Currently NPO for stress test, once able to resume diet, encourage free water intake Malignant Hypertension: - Losartan stopped - Adjust medications as needed
--- NOTE | 2018-10-04 13:57 | Progress Note ---
Assessment and Plan Echo reviewed - EF 25-30%, LA mod to severely dilated, mild MR, mod TR, LV mod dilated, pseudonormalization, RV mildly dilated, RV systolic function mildly reduced, mod pulm HTN with RVSP 56mmHg. Pt was originally scheduled for [facility] this AM to r/o ischemic CMP, however, her serum Cr increased overnight and therefore we proceeded with lexiscan MPI stress test this AM. Stress test showed small mild reversible apical defect, EF 27%. Will continue with medical management at this time. Losartan and IV lasix held in setting of renal insufficiency. Nephrology consulted. The patient has been seen in conjunction with Dr. Ballesteros who agrees with the assessment and plan of care. - Patient Problems (1) Acute HFrEF (heart failure with reduced ejection fraction) Current Visit: Yes Status: Acute (2) Dilated cardiomyopathy Current Visit: Yes Status: Chronic (3) Chest pain Current Visit: Yes Status: Acute (4) Hypertensive emergency Current Visit: Yes Status: Acute (5) Obesity Current Visit: Yes Status: Chronic Qualifiers: Obesity type: due to excess calories (6) Pulmonary hypertension Current Visit: Yes Status: Chronic (7) MEHRDAD (acute kidney injury) Current Visit: Yes Status: Acute Subjective Date of service: 10/04/18 Principal diagnosis: HF; cp Interval history: pt for stress test, no current complaints. in Sr on tele. Objective Last Vital Signs Temp 98.0 F 10/04/18 08:09 Pulse 82 10/04/18 09:54 Resp 18 10/04/18 08:09 BP 132/71 10/04/18 12:47 Pulse Ox 88 10/04/18 03:33 - Physical Examination General: No Apparent Distress HEENT: Positive: EOMI, Normocephaly, Mucus Membranes Moist Neck: Positive: neck supple, trachea midline, JVD/HJR Cardiac: Positive: Reg Rate and Rhythm, S1/S2 Lungs: Positive: Decreased Breath Sounds Neuro: Positive: Grossly Intact Abdomen: Positive: Soft, Active Bowel Sounds. Negative: Tender Skin: Positive: Clear. Negative: Rash Musculoskeletal: Normal Range of Motion Extremities: Present: normal. Absent: edema - Labs and Meds Coagulation 10/04/18 Range/Units 04:49 PT 14.4 (12.2-14.9) Sec. INR 1.15 H (0.87-1.13) APTT 22.8 L (24.2-36.6) Sec. Comprehensive Metabolic Panel 10/04/18 Range/Units 04:49 Sodium 147 H (137-145) mmol/L Potassium 4.1 (3.6-5.0) mmol/L Chloride 106.2 (98-107) mmol/L Carbon Dioxide 26 (22-30) mmol/L BUN 31 H (7-17) mg/dL Creatinine 1.9 H D (0.7-1.2) mg/dL Glucose 109 H (65-100) mg/dL Calcium 8.7 (8.4-10.2) mg/dL - Imaging and Cardiology EKG: image reviewed
--- NOTE | 2018-10-04 16:13 | Ultrasound Report ---
ULTRASOUND RENAL INDICATION: MEHRDAD COMPARISON: No relevant prior imaging study available. FINDINGS: RIGHT KIDNEY: Size: 10.5 cm. Echogenicity: Normal. Cortical thickness: Normal. Stones: None. Hydronephrosis: None. Cyst or mass: None. LEFT KIDNEY: Size: 10.3 cm. Echogenicity: Normal. Cortical thickness: Normal. Stones: None. Hydronephrosis: None. Cyst or mass: None. Urinary Bladder: No significant abnormality. Free Fluid: None. Additional Findings: None. IMPRESSION: No acute sonographic abnormality of the kidneys Signer Name: Judah Sierra MD Signed: 10/04/2018 4:09 PM Workstation Name: [id number]
--- NOTE | 2018-10-05 02:17 | Treadmill Report ---
SINGLE ISOTOPE DUAL STUDY MYOCARDIAL PERFUSION SCAN REPORT AGE: 63. SEX: Female. REFERRING PHYSICIAN: Dr. Cain, hospitalist. DESCRIPTION OF PROCEDURE: DESCRIPTION OF PROCEDURE: The patient received 10 mCi of technetium 99m Myoview intravenously under resting conditions. Resting myocardial perfusion scan was done. Subsequently, the patient underwent Lexiscan stress test as per the protocol. During Lexiscan stress, the patient received 28 mCi of technetium 99m Myoview intravenously. After 30-60 minutes, post stress images were done. Computerized reconstruction of the images was performed for analysis. The post-stress images revealed small mild apical perfusion defect. Mild transient ischemic dilatation of the left ventricle was seen with the TID ratio 1.11, which is not significant. Gated study revealed severe global left ventricular systolic dysfunction with LVEF of 27%. The resting images revealed some reversibility of the perfusion defect seen in the stress images. CONCLUSION: 1. Mild transient ischemic dilatation of the left ventricle with TID ratio of 1.11, which does not appear significant. 2. Small mild reversible apical perfusion defect. 3. Severe global left ventricular systolic dysfunction with LVEF of 27%. JOB# [id number] [facility]/NT[facility]
[2018-10-05 05:32] LABS: Hematocrit 35.5 % (30.3-42.9); Hemoglobin 11.7 gm/dl (10.1-14.3); Mean Corpuscular HGB Conc 33 % (30-34); Mean Corpuscular Volume 89 fl (79-97); Platelet Count 239 K/mm3 (140-440); Red Blood Count 3.98 M/mm3 (3.65-5.03); Red Cell Distribution Width 18.4 % (13.2-15.2)
[2018-10-05 05:39] LABS: Calcium 8.2 mg/dL (8.4-10.2)
[2018-10-05] MEDS: BABY ASPIRIN PO SCH (09:33)
[2018-10-05] MEDS: COREG PO SCH ×2 (09:33→21:51)
[2018-10-05] MEDS: PEPCID PO SCH (09:33)
[2018-10-05] MEDS: SODIUM CHLORIDE FLUSH SYRINGE 10 ML IV SCH ×2 (09:34→21:53)
[2018-10-05 10:00] LABS: Bacteria,Urine 1+ /HPF (Negative); Hyaline Casts,Urine 1 /LPF; Mucus,Urine FEW /HPF
--- NOTE | 2018-10-05 11:34 | Progress Note ---
Assessment and Plan Acute combined CHF: - S/p Echo showed EF 25-30%, moderate pulmonary HTN - CXR on 10/02/18 showed early heart failure - On coreg and ASA - Cardiology on board Acute Kidney Injury possibly prerenal in setting of diuretics, ARBs, ? cardiorenal syndrome, r/o obstruction: Hyperkalemia: - stable Cr since yesterday - cont to hold lasix 40 mg IV daily and losartan 100 mg po daily for now in setting of MEHRDAD (both stopped on 10/04/18) - Obtain urine lytes/protein, pending - urine eos -ve - renal US -ve for obstruction - Renally dose meds - Drake Catheter: No Hypernatremia: - resolved Malignant Hypertension: - stabilized Subjective Date of service: 10/05/18 Principal diagnosis: HF; cp Interval history: SHOB is slowly improving Objective - Vital Signs Vital signs: Vital Signs - 12hr 10/05/18 10/05/18 10/05/18 03:52 07:24 09:33 Temperature 97.5 F L 97.5 F L Pulse Rate 78 81 80 Respiratory 20 16 Rate Blood Pressure 116/63 128/75 O2 Sat by Pulse 91 94 Oximetry - General Appearance General appearance: well-developed, well-nourished, appears stated age EENT: ATNC, PERRL, mucous membranes moist Neck: no JVD, no carotid bruit Respiratory: Present: Clear to Ascultation. Absent: Rales, Ronchi Cardiology: regular, S1S2 Gastrointestinal: normoactive bowel sounds, no tenderness, no distended Integumentary: no rash, warm and dry Neurologic: no focal deficit, no asterixis, alert and oriented x3 Musculoskeletal: other (trace pitting edema in BLE) Psychiatric: mood/affect appropriate, cooperative - Lab 10/05/18 05:04 10/05/18 05:04 Most recent lab results Calcium 8.2 mg/dL (8.4-10.2) L 10/05/18 05:04 Phosphorus 5.00 mg/dL (2.5-4.5) H 10/05/18 05:04 Magnesium 1.80 mg/dL (1.7-2.3) 10/05/18 05:04 Medications & Allergies - Medications Allergies/Adverse Reactions: Allergies No Known Allergies Allergy (Unverified 10/02/18 09:57) Home Medications: Home Medications Medication Instructions Recorded Confirmed Last Taken Type Aspirin [Aspirin BABY CHEW TAB] 81 mg PO DAILY 10/02/18 10/02/18 Unknown History Active Medications: Generic Name Dose Route Start Last Admin Trade Name Robertq PRN Reason Stop Dose Admin Acetaminophen 650 mg 10/02/18 22:28 Tylenol PO Q4H PRN Pain MILD(1-3)/Fever >100.5/[place] Aspirin 81 mg 10/02/18 20:00 10/05/18 09:33 Baby Aspirin PO 81 mg DAILY SUAD Administration Carvedilol 12.5 mg 10/05/18 22:00 Coreg PO BID SUAD Famotidine 20 mg 10/05/18 10:00 10/05/18 09:33 Pepcid PO 20 mg DAILY SUAD Administration Hydromorphone HCl 0.5 mg 10/02/18 19:19 Dilaudid IV Q3H PRN Pain , Severe (7-10) Ondansetron HCl 4 mg 10/02/18 22:28 Zofran IV Q8H PRN Nausea And Vomiting Oxycodone/Acetaminophen 1 tab 10/02/18 22:28 Percocet 5/325 PO Q6H PRN Pain, Moderate (4-6) Sodium Chloride 10 ml 10/03/18 10:00 10/05/18 09:34 Sodium Chloride Flush Syringe 10 Ml IV 10 ml BID SUAD Administration Sodium Chloride 10 ml 10/02/18 22:28 Sodium Chloride Flush Syringe 10 Ml IV PRN PRN LINE FLUSH
--- NOTE | 2018-10-05 11:47 | Progress Note ---
Assessment and Plan Currently stable cardiac status. Pt may discharge home from cardiology standpoint. Per nephrology, cont to hold lasix and losartan at this time in setting of renal insufficiency. Will readdress as OP. Follow up in our [place] office with Dr. Valerio on 10/08/2018 @ 3:15PM. The patient has been seen in conjunction with Dr. Ballesteros who agrees with the assessment and plan of care. - Patient Problems (1) Acute HFrEF (heart failure with reduced ejection fraction) Current Visit: Yes Status: Acute (2) Dilated cardiomyopathy Current Visit: Yes Status: Chronic (3) Chest pain Current Visit: Yes Status: Resolved (4) Hypertensive emergency Current Visit: Yes Status: Resolved (5) Obesity Current Visit: Yes Status: Chronic Qualifiers: Obesity type: due to excess calories (6) Pulmonary hypertension Current Visit: Yes Status: Chronic (7) MEHRDAD (acute kidney injury) Current Visit: Yes Status: Acute Subjective Date of service: 10/05/18 Principal diagnosis: HF; cp Interval history: pt resting up at bedside, c/o feeling tired, no current complaints. in Sr on tele, no acute events overnight. Objective Last Vital Signs Temp 97.5 F L 10/05/18 07:24 Pulse 80 10/05/18 09:33 Resp 16 10/05/18 07:24 BP 128/75 10/05/18 07:24 Pulse Ox 94 10/05/18 07:24 - Physical Examination General: No Apparent Distress HEENT: Positive: EOMI, Normocephaly, Mucus Membranes Moist Neck: Positive: neck supple, trachea midline, JVD/HJR Cardiac: Positive: Reg Rate and Rhythm, S1/S2 Lungs: Positive: clear to auscultation Neuro: Positive: Grossly Intact Abdomen: Positive: Soft, Active Bowel Sounds. Negative: Tender Skin: Positive: Clear. Negative: Rash Musculoskeletal: Normal Range of Motion Extremities: Present: normal. Absent: edema - Labs and Meds CBC 10/05/18 Range/Units 05:04 WBC 5.7 (4.5-11.0) K/mm3 RBC 3.98 (3.65-5.03) M/mm3 Hgb 11.7 (10.1-14.3) gm/dl Hct 35.5 (30.3-42.9) % Plt Count 239 (140-440) K/mm3 Comprehensive Metabolic Panel 10/05/18 Range/Units 05:04 Sodium 141 (137-145) mmol/L Potassium 3.8 (3.6-5.0) mmol/L Chloride 103.6 (98-107) mmol/L Carbon Dioxide 27 (22-30) mmol/L BUN 31 H (7-17) mg/dL Creatinine 1.9 H (0.7-1.2) mg/dL Glucose 116 H (65-100) mg/dL Calcium 8.2 L (8.4-10.2) mg/dL - Imaging and Cardiology EKG: image reviewed Pharmacologic stress test: report reviewed (small mild reversible apical defect, EF 27%.) Echo: report reviewed (EF 25-30%, LA mod to severely dilated, mild MR, mod TR, LV mod dilated, pseudonormalization, RV mildly dilated, RV systolic function mildly reduced, mod pulm HTN with RVSP 56mmHg. )
[2018-10-05 12:15] LABS: Bacteria,Urine 2+ /HPF (Negative); Bilirubin,Urine NEG (Negative); Blood,Urine NEG (Negative); Color,Urine Yellow (Yellow); RBC,Urine < 1.0 /HPF (0.0-6.0); Urobilinogen,Urine < 2.0 mg/dL (<2.0)
--- NOTE | 2018-10-05 14:11 | Progress Note ---
Assessment and Plan - Patient Problems (1) MEHRDAD (acute kidney injury) Current Visit: Yes Status: Acute Plan to address problem: Acute kidney injury exact etiology unknown at this time. Was normal upon presentation most likely diuretic plus LARRY inhibitor. We'll repeat in a.m. May benefit from gentle diuresis. Heart failure improving stable. Renal is following. (2) Acute exacerbation of CHF (congestive heart failure) Current Visit: Yes Status: Acute Qualifiers: Heart failure type: combined systolic and diastolic Qualified Code(s): I50.43 - Acute on chronic combined systolic (congestive) and diastolic (congestive) heart failure Plan to address problem: Improving significantly. Patient last shortness of breath no chest pain. Able to lie supine. shortness of breath at present has to do with obesity hypoventilation syndrome. Follow-up chest x-ray patient no longer requiring diuretics. (3) Obesity Current Visit: Yes Status: Chronic Qualifiers: Obesity type: due to excess calories Plan to address problem: Educated on lifestyle changes. Low-carb diet. Forms of exercise. (4) Hypertensive emergency Current Visit: Yes Status: Resolved Plan to address problem: Patient blood pressure not optimally controlled. Patient on Coreg calcium channel jose guadalupe. Blood pressure 128/75. History Interval history: Patient sitting in bedside. States she feels better. Unable to get cardiac catheterization yesterday and again today secondary to acute kidney injury. Hospitalist Physical - Constitutional Vitals: Temp Pulse Resp BP Pulse Ox 97.6 F 78 16 103/61 94 10/05/18 12:11 10/05/18 12:11 10/05/18 12:11 10/05/18 12:11 10/05/18 12:11 General appearance: Present: no acute distress - EENT Eyes: Present: PERRL, EOM intact ENT: hearing intact, clear oral mucosa, dentition normal - Neck Neck: Present: supple, normal ROM - Respiratory Respiratory effort: normal Respiratory: bilateral: diminished, rales (few rales) - Cardiovascular Rhythm: regular - Extremities Extremities: no ischemia, pulses intact, pulses symmetrical, normal temperature, normal color, Full ROM Extremity abnormal: edema Peripheral Pulses: within normal limits - Abdominal General gastrointestinal: soft, non-tender, non-distended, normal bowel sounds - Integumentary Integumentary: Present: clear, warm, dry. Absent: erythema, jaundice, rash, clammy - Psychiatric Psychiatric: appropriate mood/affect, intact judgment & insight, memory intact - Neurologic Neurologic: CNII-XII intact, no focal deficits, moves all extremities Results - Labs CBC & Chem 7: 10/05/18 05:04 10/05/18 05:04 Labs: Laboratory Last Values WBC 5.7 K/mm3 (4.5-11.0) 10/05/18 05:04 RBC 3.98 M/mm3 (3.65-5.03) 10/05/18 05:04 Hgb 11.7 gm/dl (10.1-14.3) 10/05/18 05:04 Hct 35.5 % (30.3-42.9) 10/05/18 05:04 MCV 89 fl (79-97) 10/05/18 05:04 MCH 29 pg (28-32) 10/05/18 05:04 MCHC 33 % (30-34) 10/05/18 05:04 RDW 18.4 % (13.2-15.2) H 10/05/18 05:04 Plt Count 239 K/mm3 (140-440) 10/05/18 05:04 Lymph % (Auto) 32.3 % (13.4-35.0) 10/03/18 03:29 [place] % (Auto) 7.9 % (0.0-7.3) H 10/03/18 03:29 Eos % (Auto) 1.9 % (0.0-4.3) 10/03/18 03:29 Baso % (Auto) 1.1 % (0.0-1.8) 10/03/18 03:29 Lymph # 2.0 K/mm3 (1.2-5.4) 10/03/18 03:29 [place] # 0.5 K/mm3 (0.0-0.8) 10/03/18 03:29 Eos # 0.1 K/mm3 (0.0-0.4) 10/03/18 03:29 Baso # 0.1 K/mm3 (0.0-0.1) 10/03/18 03:29 Seg Neutrophils % 56.8 % (40.0-70.0) 10/03/18 03:29 Seg Neutrophils # 3.5 K/mm3 (1.8-7.7) 10/03/18 03:29 PT 14.4 Sec. (12.2-14.9) 10/04/18 04:49 INR 1.15 (0.87-1.13) H 10/04/18 04:49 APTT 22.8 Sec. (24.2-36.6) L 10/04/18 04:49 POC ABG pH 7.437 (7.35-7.45) 10/02/18 11:04 POC ABG pCO2 31.0 (35-45) L 10/02/18 11:04 POC ABG HCO3 20.9 (22-26 mml/L) 10/02/18 11:04 POC ABG Total CO2 22 (23-27mmol/L) 10/02/18 11:04 POC ABG O2 Sat 85 10/02/18 11:04 POC ABG Base Excess -3 ((-2) - (+3)mmol/L) 10/02/18 11:04 21 % 10/02/18 11:04 Sodium 141 mmol/L (137-145) 10/05/18 05:04 Potassium 3.8 mmol/L (3.6-5.0) 10/05/18 05:04 Chloride 103.6 mmol/L (98-107) 10/05/18 05:04 Carbon Dioxide 27 mmol/L (22-30) 10/05/18 05:04 14 mmol/L 10/05/18 05:04 BUN 31 mg/dL (7-17) H 10/05/18 05:04 1.9 mg/dL (0.7-1.2) H 10/05/18 05:04 Estimated GFR 32 ml/min 10/05/18 05:04 16 % 10/05/18 05:04 Glucose 116 mg/dL (65-100) H 10/05/18 05:04 POC Glucose 116 (70-105) H 10/05/18 11:26 5.3 % (4-6) 10/02/18 19:45 Calcium 8.2 mg/dL (8.4-10.2) L 10/05/18 05:04 Phosphorus 5.00 mg/dL (2.5-4.5) H 10/05/18 05:04 Magnesium 1.80 mg/dL (1.7-2.3) 10/05/18 05:04 0.90 mg/dL (0.1-1.2) 10/03/18 03:29 < 0.2 mg/dL (0-0.2) 10/02/18 10:38 0.7 mg/dL 10/02/18 10:38 AST 17 units/L (5-40) 10/03/18 03:29 ALT 12 units/L (7-56) 10/03/18 03:29 98 units/L (35-129) 10/03/18 03:29 87 units/L (30-135) 10/02/18 10:38 CK-MB (CK-2) 2.0 ng/mL (0.0-4.0) 10/02/18 10:38 CK-MB (CK-2) Rel Index 2.2 (0-4) 10/02/18 10:38 < 0.010 ng/mL (0.00-0.029) 10/03/18 03:29 NT-Pro-B Natriuret Pep 3872 pg/mL (0-900) H 10/02/18 10:38 7.8 g/dL (6.3-8.2) 10/03/18 03:29 3.9 g/dL (3.9-5) 10/03/18 03:29 1.0 % 10/03/18 03:29 TSH 2.410 mlU/mL (0.270-4.200) 10/02/18 10:38 Free T4 1.49 ng/dL (0.76-1.46) H 10/02/18 10:38 PTH Intact 185.7 pg/mL (15-65) H 10/05/18 05:04 Yellow (Yellow) 10/05/18 08:30 Slightly-cloudy (Clear) 10/05/18 08:30 6.0 (5.0-7.0) 10/05/18 08:30 Ur Specific [place] 1.013 (1.003-1.030) 10/05/18 08:30 30 mg/dl mg/dL (Negative) 10/05/18 08:30 Neg mg/dL (Negative) 10/05/18 08:30 Neg mg/dL (Negative) 10/05/18 08:30 Neg (Negative) 10/05/18 08:30 Neg (Negative) 10/05/18 08:30 Neg (Negative) 10/05/18 08:30 < 2.0 mg/dL (<2.0) 10/05/18 08:30 Ur Leukocyte Esterase Neg (Negative) 10/05/18 08:30 1.0 /HPF (0.0-6.0) 10/05/18 08:30 1.0 /HPF (0.0-6.0) 10/05/18 08:30 6.0 /HPF (0.0-6.0) 10/05/18 08:30 < 1.0 /HPF (0.0-6.0) 10/05/18 08:30 U Epithel Cells (Auto) 12.0 /HPF (0-13.0) 10/05/18 08:30 U Epithel Cells (Auto) 12.0 /HPF (0-13.0) 10/05/18 08:30 1+ /HPF (Negative) 10/05/18 08:30 2+ /HPF (Negative) 10/05/18 08:30 Hyaline Casts 1 /LPF 10/05/18 08:30 Few /HPF 10/05/18 08:30 None seen (None Seen) 10/05/18 08:30 - Imaging and Cardiology EKG: image reviewed Chest x-ray: image reviewed Venous US: report reviewed, image reviewed Active Medications - Current Medications Current Medications: Generic Name Dose Route Start Last Admin Trade Name Freq PRN Reason Stop Dose Admin Acetaminophen 650 mg 10/02/18 22:28 Tylenol PO Q4H PRN Pain MILD(1-3)/Fever >100.5/[place] Aspirin 81 mg 10/02/18 20:00 10/05/18 09:33 Baby Aspirin PO 81 mg DAILY SUAD Administration Carvedilol 12.5 mg 10/05/18 22:00 Coreg PO BID SUAD Famotidine 20 mg 10/05/18 10:00 10/05/18 09:33 Pepcid PO 20 mg DAILY SUAD Administration Hydromorphone HCl 0.5 mg 10/02/18 19:19 Dilaudid IV Q3H PRN Pain , Severe (7-10) Ondansetron HCl 4 mg 10/02/18 22:28 Zofran IV Q8H PRN Nausea And Vomiting Oxycodone/Acetaminophen 1 tab 10/02/18 22:28 Percocet 5/325 PO Q6H PRN Pain, Moderate (4-6) Sodium Chloride 10 ml 10/03/18 10:00 10/05/18 09:34 Sodium Chloride Flush Syringe 10 Ml IV 10 ml BID SUAD Administration Sodium Chloride 10 ml 10/02/18 22:28 Sodium Chloride Flush Syringe 10 Ml IV PRN PRN LINE FLUSH
[2018-10-05 14:36] LABS: Creatinine,Urine 112.4 mg/dL (0.1-20.0); Microalbumin/Creatinine Ratio 114.7 ug/mg
[2018-10-05 14:52] LABS: Creatinine,Urine 111.2 mg/dL (0.1-20.0); Protein/Creatinine Ratio,Urine 0.25
[2018-10-06] MEDS: COREG PO SCH ×2 (09:32→22:26)
[2018-10-06] MEDS: PEPCID PO SCH (09:33)
[2018-10-06] MEDS: BABY ASPIRIN PO SCH (09:33)
[2018-10-06] MEDS: SODIUM CHLORIDE FLUSH SYRINGE 10 ML IV SCH ×2 (09:33→22:28)
[2018-10-06 10:16] LABS: Albumin 3.6 g/dL (3.9-5); Calcium 8.9 mg/dL (8.4-10.2)
--- NOTE | 2018-10-06 10:56 | Progress Note ---
Assessment and Plan Acute Kidney Injury possibly prerenal in setting of diuretics, ARBs, ? cardiorenal syndrome, r/o obstruction: Hyperkalemia: - Renal function reviewed, SCr level trend down to 1.5 today, yesterday's SCr level was 1.9 - Lasix 40 mg IV daily and losartan 100 mg po daily on hold for now in setting of MEHRDAD (both stopped on 10/04/18) - Urine lytes reviewed. No urine eosinophils noted. - Renal US- no obstruction - Hyperkalemia improved with medical management - Renally dose meds - Drake Catheter: No - Continue to monitor renal function Acute combined CHF: - S/p Echo showed EF 25-30%, moderate pulmonary HTN - CXR on 10/02/18 showed early heart failure - Lasix and losartan were discontinued due to worsening MEHRDAD - On Coreg and ASA - Cardiology on board Hypernatremia, Resolved: - Serum sodium level was 140 today - BMP daily Malignant Hypertension: - Controlled on Coreg - Continue to monitor blood pressures Subjective Date of service: 10/06/18 Principal diagnosis: HF; cp Interval history: Patient seen sitting up at edge of bed eating lunch. Patient has difficult time understanding her renal labs. Explained renal labs to patient. Objective - Vital Signs Vital signs: Vital Signs - 12hr 10/05/18 10/06/18 10/06/18 23:19 03:08 03:58 Temperature 98.4 F 97.7 F Pulse Rate 76 89 75 Respiratory 18 19 Rate Blood Pressure 115/75 109/61 O2 Sat by Pulse 92 97 Oximetry 10/06/18 10/06/18 10/06/18 07:46 09:00 09:32 Temperature 97.7 F Pulse Rate 78 Respiratory 16 Rate Blood Pressure 120/66 120/66 O2 Sat by Pulse 97 92 Oximetry - General Appearance General appearance: well-developed, appears stated age, fatigue EENT: ATNC, PERRL, hearing intact, vision intact Neck: no JVD, supple Respiratory: Present: Decreased Breath Sounds Cardiology: S1S2 Gastrointestinal: normoactive bowel sounds Integumentary: no rash Neurologic: alert and oriented x3 Musculoskeletal: other (No edema) - Lab 10/05/18 05:04 10/06/18 09:17 Most recent lab results Calcium 8.9 mg/dL (8.4-10.2) 10/06/18 09:17 Phosphorus 5.00 mg/dL (2.5-4.5) H 10/05/18 05:04 Magnesium 1.80 mg/dL (1.7-2.3) 10/05/18 05:04 111.2 mg/dL (0.1-20.0) H 10/05/18 08:30 112.4 mg/dL (0.1-20.0) H 10/05/18 08:30 28 mmol/L 10/05/18 08:30 28 mmol/L 10/05/18 08:30 28 mg/dL (5-11.8) H 10/05/18 08:30 Medications & Allergies - Medications Allergies/Adverse Reactions: Allergies No Known Allergies Allergy (Unverified 10/02/18 09:57) Home Medications: Home Medications Medication Instructions Recorded Confirmed Last Taken Type Aspirin [Aspirin BABY CHEW TAB] 81 mg PO DAILY 10/02/18 10/02/18 Unknown History Active Medications: Generic Name Dose Route Start Last Admin Trade Name Freq PRN Reason Stop Dose Admin Acetaminophen 650 mg 10/02/18 22:28 Tylenol PO Q4H PRN Pain MILD(1-3)/Fever >100.5/[place] Aspirin 81 mg 10/02/18 20:00 10/06/18 09:33 Baby Aspirin PO 81 mg DAILY SUAD Administration Carvedilol 12.5 mg 10/05/18 22:00 10/06/18 09:32 Coreg PO 12.5 mg BID SUAD Administration Famotidine 20 mg 10/05/18 10:00 10/06/18 09:33 Pepcid PO 20 mg DAILY SUAD Administration Hydromorphone HCl 0.5 mg 10/02/18 19:19 Dilaudid IV Q3H PRN Pain , Severe (7-10) Ondansetron HCl 4 mg 10/02/18 22:28 Zofran IV Q8H PRN Nausea And Vomiting Oxycodone/Acetaminophen 1 tab 10/02/18 22:28 Percocet 5/325 PO Q6H PRN Pain, Moderate (4-6) Sodium Chloride 10 ml 10/03/18 10:00 10/06/18 09:33 Sodium Chloride Flush Syringe 10 Ml IV 10 ml BID SUAD Administration Sodium Chloride 10 ml 10/02/18 22:28 Sodium Chloride Flush Syringe 10 Ml IV PRN PRN LINE FLUSH
--- NOTE | 2018-10-06 20:52 | Progress Note ---
Assessment and Plan - Patient Problems (1) MEHRDAD (acute kidney injury) Current Visit: Yes Status: Acute Plan to address problem: Patient has had improvement in renal function most likely vasomotor nephropathy. Continue gentle hydration. When resolved patient may be able to obtain cardiac catheterization. (2) Acute exacerbation of CHF (congestive heart failure) Current Visit: Yes Status: Acute Qualifiers: Heart failure type: combined systolic and diastolic Qualified Code(s): I50.43 - Acute on chronic combined systolic (congestive) and diastolic (congestive) heart failure Plan to address problem: Improving without diuresis. We'll follow up chest x-ray Lasix and losartan has been on hold. Today to acute renal failure. Present only on Coreg will follow- up labs and chest x-ray. Ejection fraction 27%. Patient abnormal stress test await cardiac catheterization. (3) Obesity Current Visit: Yes Status: Chronic Qualifiers: Obesity type: due to excess calories Plan to address problem: Educated on lifestyle changes. Low-carb diet. Forms of exercise. (4) Hypertensive emergency Current Visit: Yes Status: Resolved Plan to address problem: Patient has optimal blood pressure control Coreg. Follow-up chest x-ray in a.m. if renal function is stable cardiac catheterization in a.m. History Interval history: Issue at present remains pain free. Said that he'll did talk to patient about every issue. Patient should be well informed on every process and every treatment option as she may have. Patient is happy that her creatinine improved. No pain no shortness of breath is improved. Her main problem now remains fatigue easy fatigability. Patient gets up to brush her teeth and feels fatigue but no chest pain. Hospitalist Physical - Constitutional Vitals: Temp Pulse Resp BP Pulse Ox 97.8 F 84 19 116/68 87 10/06/18 19:49 10/06/18 19:49 10/06/18 19:49 10/06/18 19:49 10/06/18 19:49 General appearance: Present: no acute distress - EENT Eyes: Present: PERRL, EOM intact ENT: hearing intact, clear oral mucosa, dentition normal, no oropharyngeal erythema, no poor dentition, no thrush - Neck Neck: Present: supple, normal ROM - Respiratory Respiratory effort: normal Respiratory: bilateral: rhonchi - Cardiovascular Rhythm: regular - Extremities Extremities: no ischemia, pulses intact, pulses symmetrical, No edema, normal temperature, normal color, Full ROM Peripheral Pulses: within normal limits - Abdominal General gastrointestinal: soft, non-tender, non-distended, normal bowel sounds, no hepatomegaly, no splenomegaly - Integumentary Integumentary: Present: clear, warm, dry - Psychiatric Psychiatric: appropriate mood/affect, other (judgment somewhat question Depakote detail.) - Neurologic Neurologic: CNII-XII intact, moves all extremities Results - Labs CBC & Chem 7: 10/05/18 05:04 10/06/18 09:17 Labs: Laboratory Last Values WBC 5.7 K/mm3 (4.5-11.0) 10/05/18 05:04 RBC 3.98 M/mm3 (3.65-5.03) 10/05/18 05:04 Hgb 11.7 gm/dl (10.1-14.3) 10/05/18 05:04 Hct 35.5 % (30.3-42.9) 10/05/18 05:04 MCV 89 fl (79-97) 10/05/18 05:04 MCH 29 pg (28-32) 10/05/18 05:04 MCHC 33 % (30-34) 10/05/18 05:04 RDW 18.4 % (13.2-15.2) H 10/05/18 05:04 Plt Count 239 K/mm3 (140-440) 10/05/18 05:04 Lymph % (Auto) 32.3 % (13.4-35.0) 10/03/18 03:29 [place] % (Auto) 7.9 % (0.0-7.3) H 10/03/18 03:29 Eos % (Auto) 1.9 % (0.0-4.3) 10/03/18 03:29 Baso % (Auto) 1.1 % (0.0-1.8) 10/03/18 03:29 Lymph # 2.0 K/mm3 (1.2-5.4) 10/03/18 03:29 [place] # 0.5 K/mm3 (0.0-0.8) 10/03/18 03:29 Eos # 0.1 K/mm3 (0.0-0.4) 10/03/18 03:29 Baso # 0.1 K/mm3 (0.0-0.1) 10/03/18 03:29 Seg Neutrophils % 56.8 % (40.0-70.0) 10/03/18 03:29 Seg Neutrophils # 3.5 K/mm3 (1.8-7.7) 10/03/18 03:29 PT 14.4 Sec. (12.2-14.9) 10/04/18 04:49 INR 1.15 (0.87-1.13) H 10/04/18 04:49 APTT 22.8 Sec. (24.2-36.6) L 10/04/18 04:49 POC ABG pH 7.437 (7.35-7.45) 10/02/18 11:04 POC ABG pCO2 31.0 (35-45) L 10/02/18 11:04 POC ABG HCO3 20.9 (22-26 mml/L) 10/02/18 11:04 POC ABG Total CO2 22 (23-27mmol/L) 10/02/18 11:04 POC ABG O2 Sat 85 10/02/18 11:04 POC ABG Base Excess -3 ((-2) - (+3)mmol/L) 10/02/18 11:04 21 % 10/02/18 11:04 Sodium 140 mmol/L (137-145) 10/06/18 09:17 Potassium 3.6 mmol/L (3.6-5.0) 10/06/18 09:17 Chloride 102.0 mmol/L (98-107) 10/06/18 09:17 Carbon Dioxide 25 mmol/L (22-30) 10/06/18 09:17 17 mmol/L 10/06/18 09:17 BUN 32 mg/dL (7-17) H 10/06/18 09:17 1.5 mg/dL (0.7-1.2) H 10/06/18 09:17 Estimated GFR 43 ml/min 10/06/18 09:17 21 % 10/06/18 09:17 Glucose 162 mg/dL (65-100) H 10/06/18 09:17 POC Glucose 88 (70-105) 10/06/18 16:36 5.3 % (4-6) 10/02/18 19:45 Calcium 8.9 mg/dL (8.4-10.2) 10/06/18 09:17 Phosphorus 5.00 mg/dL (2.5-4.5) H 10/05/18 05:04 Magnesium 1.80 mg/dL (1.7-2.3) 10/05/18 05:04 0.50 mg/dL (0.1-1.2) 10/06/18 09:17 < 0.2 mg/dL (0-0.2) 10/02/18 10:38 0.7 mg/dL 10/02/18 10:38 AST 15 units/L (5-40) 10/06/18 09:17 ALT 14 units/L (7-56) 10/06/18 09:17 90 units/L (35-129) 10/06/18 09:17 87 units/L (30-135) 10/02/18 10:38 CK-MB (CK-2) 2.0 ng/mL (0.0-4.0) 10/02/18 10:38 CK-MB (CK-2) Rel Index 2.2 (0-4) 10/02/18 10:38 < 0.010 ng/mL (0.00-0.029) 10/03/18 03:29 NT-Pro-B Natriuret Pep 3872 pg/mL (0-900) H 10/02/18 10:38 6.9 g/dL (6.3-8.2) 10/06/18 09:17 3.6 g/dL (3.9-5) L 10/06/18 09:17 1.1 % 10/06/18 09:17 TSH 2.410 mlU/mL (0.270-4.200) 10/02/18 10:38 Free T4 1.49 ng/dL (0.76-1.46) H 10/02/18 10:38 PTH Intact 185.7 pg/mL (15-65) H 10/05/18 05:04 Yellow (Yellow) 10/05/18 08:30 Slightly-cloudy (Clear) 10/05/18 08:30 6.0 (5.0-7.0) 10/05/18 08:30 Ur Specific [place] 1.013 (1.003-1.030) 10/05/18 08:30 30 mg/dl mg/dL (Negative) 10/05/18 08:30 Neg mg/dL (Negative) 10/05/18 08:30 Neg mg/dL (Negative) 10/05/18 08:30 Neg (Negative) 10/05/18 08:30 Neg (Negative) 10/05/18 08:30 Neg (Negative) 10/05/18 08:30 < 2.0 mg/dL (<2.0) 10/05/18 08:30 Ur Leukocyte Esterase Neg (Negative) 10/05/18 08:30 1.0 /HPF (0.0-6.0) 10/05/18 08:30 1.0 /HPF (0.0-6.0) 10/05/18 08:30 6.0 /HPF (0.0-6.0) 10/05/18 08:30 < 1.0 /HPF (0.0-6.0) 10/05/18 08:30 U Epithel Cells (Auto) 12.0 /HPF (0-13.0) 10/05/18 08:30 U Epithel Cells (Auto) 12.0 /HPF (0-13.0) 10/05/18 08:30 1+ /HPF (Negative) 10/05/18 08:30 2+ /HPF (Negative) 10/05/18 08:30 Hyaline Casts 1 /LPF 10/05/18 08:30 Few /HPF 10/05/18 08:30 None seen (None Seen) 10/05/18 08:30 111.2 mg/dL (0.1-20.0) H 10/05/18 08:30 112.4 mg/dL (0.1-20.0) H 10/05/18 08:30 12.9 mg/dL (0.1-34.0) 10/05/18 08:30 Microalb/Creat Ratio 114.7 ug/mg 10/05/18 08:30 Protein/Creatinin Ratio 0.25 10/05/18 08:30 28 mmol/L 10/05/18 08:30 28 mmol/L 10/05/18 08:30 799 10/05/18 08:30 28 mg/dL (5-11.8) H 10/05/18 08:30 Active Medications - Current Medications Current Medications: Generic Name Dose Route Start Last Admin Trade Name Robertq PRN Reason Stop Dose Admin Acetaminophen 650 mg 10/02/18 22:28 Tylenol PO Q4H PRN Pain MILD(1-3)/Fever >100.5/[place] Aspirin 81 mg 10/02/18 20:00 10/06/18 09:33 Baby Aspirin PO 81 mg DAILY SUAD Administration Carvedilol 12.5 mg 10/05/18 22:00 10/06/18 09:32 Coreg PO 12.5 mg BID SUAD Administration Famotidine 20 mg 10/05/18 10:00 10/06/18 09:33 Pepcid PO 20 mg DAILY SUAD Administration Hydromorphone HCl 0.5 mg 10/02/18 19:19 Dilaudid IV Q3H PRN Pain , Severe (7-10) Ondansetron HCl 4 mg 10/02/18 22:28 Zofran IV Q8H PRN Nausea And Vomiting Oxycodone/Acetaminophen 1 tab 10/02/18 22:28 Percocet 5/325 PO Q6H PRN Pain, Moderate (4-6) Sodium Chloride 10 ml 10/03/18 10:00 10/06/18 09:33 Sodium Chloride Flush Syringe 10 Ml IV 10 ml BID SUAD Administration Sodium Chloride 10 ml 10/02/18 22:28 Sodium Chloride Flush Syringe 10 Ml IV PRN PRN LINE FLUSH
[2018-10-07 05:52] LABS: Calcium 8.5 mg/dL (8.4-10.2)
[2018-10-07 07:01] LABS: Basophils # (Auto) 0.1 K/mm3 (0.0-0.1); Basophils % (Auto) 1.3 % (0.0-1.8); Eosinophils # (Auto) 0.1 K/mm3 (0.0-0.4); Eosinophils % (Auto) 2.5 % (0.0-4.3); Hematocrit 35.3 % (30.3-42.9); Hemoglobin 11.6 gm/dl (10.1-14.3); Lymphocytes # (Auto) 1.7 K/mm3 (1.2-5.4); Lymphocytes % (Auto) 33.1 % (13.4-35.0); Mean Corpuscular HGB Conc 33 % (30-34); Mean Corpuscular Volume 90 fl (79-97); Monocytes # (Auto) 0.7 K/mm3 (0.0-0.8); Monocytes % (Auto) 12.8 % (0.0-7.3); Platelet Count 256 K/mm3 (140-440); Red Blood Count 3.94 M/mm3 (3.65-5.03); Red Cell Distribution Width 18.4 % (13.2-15.2)
[2018-10-07 07:12] LABS: Calcium 8.6 mg/dL (8.4-10.2)
--- NOTE | 2018-10-07 08:37 | XRay Report ---
CHEST 1 VIEW [id number] INDICATION / CLINICAL INFORMATION: 10/02/2018. COMPARISON: None available. FINDINGS: SUPPORT DEVICES: None HEART / MEDIASTINUM: Moderate cardiomegaly LUNGS / PLEURA: Congestive changes and pulmonary edema continue with slight worsening seen. Mild atel ectatic changes are again noted. No pneumothorax. ADDITIONAL FINDINGS: No significant additional findings. IMPRESSION: Slight worsening of congestion Signer Name: Judah Sierra MD Signed: 10/07/2018 8:33 AM Workstation Name: [id number]
--- NOTE | 2018-10-07 10:45 | Discharge Summary ---
Providers - Providers Date of Admission: 10/02/18 11:56 Date of discharge: 10/07/18 Attending physician: ASHISH FLANAGAN 10/02/18 19:34 Consult to Physician [CONS] Routine Comment: Consulting Provider: TAMARA RODRIGUEZ Physician Instructions: Reason For Exam: CHF exacerbation 10/04/18 07:35 Consult to Physician [CONS] Routine Comment: Consulting Provider: CHANDA STEPHENS Physician Instructions: Reason For Exam: ARF Primary care physician: [facility], Hospitalization Reason for admission: CHF exac Condition: Stable Hospital course: 63 YO presented with 1 month h/o exertional dyspnea with orthopnea. She also complains of intermittent substernal chest tightness. Although she has HTN, she claims that she has been unable to afford her meds for the past 2 years. Cardiology was consulted and ECHO completed EF 25-30%, LA mod to severely dilated, mild MR, mod TR, LV mod dilated, pseudonormalization, RV mildly dilated, RV systolic function mildly reduced, mod pulm HTN with RVSP 56mmHg. Pt was originally scheduled for [facility] to r/o ischemic CMP, however, her serum Cr increased and therefore Cardiology proceeded with lexiscan MPI stress test. Stress test showed small mild reversible apical defect, EF 27%. Cardiology opted for medical management at this time. Cards reports that they Will readdress as OP. With regards to renal insufficiency, Nephrology consulted and held lasix and losartan. Dedicated d/c time 32 minutes Disposition: DC-01 TO HOME OR SELFCARE Time spent for discharge: 32 - Discharge Diagnoses (1) MEHRDAD (acute kidney injury) Status: Acute (2) Accelerated hypertension Status: Acute (3) Acute HFrEF (heart failure with reduced ejection fraction) Status: Acute (4) Acute exacerbation of CHF (congestive heart failure) Status: Acute Qualifiers: Heart failure type: combined systolic and diastolic Qualified Code(s): I50.43 - Acute on chronic combined systolic (congestive) and diastolic (congestive) heart failure (5) Acute heart failure Status: Acute Core Measure Documentation - Palliative Care Palliative Care/ Comfort Measures: Not Applicable - Core Measures Any of the following diagnoses?: heart failure - Heart Failure Discharge Requirements LARRY/ARB for LVSD if EF <40%: No Reason for no LARRY/ARB: Renal impairment Beta jose guadalupe at discharge: Yes Exam - Constitutional Vitals: Temp Pulse Resp BP Pulse Ox 98.2 F 76 18 138/83 96 10/07/18 08:16 10/07/18 08:16 10/07/18 08:16 10/07/18 08:16 10/07/18 08:16 General appearance: Present: no acute distress, well-nourished - EENT Eyes: Present: PERRL ENT: hearing intact, clear oral mucosa - Neck Neck: Present: supple, normal ROM - Respiratory Respiratory effort: normal Respiratory: bilateral: CTA - Cardiovascular Heart Sounds: Present: S1 & S2. Absent: rub, click - Extremities Extremities: pulses symmetrical, No edema Peripheral Pulses: within normal limits - Abdominal General gastrointestinal: Present: soft, non-tender, non-distended, normal bowel sounds Female genitourinary: Present: normal - Integumentary Integumentary: Present: clear, warm, dry - Musculoskeletal Musculoskeletal: gait normal, strength equal bilaterally - Psychiatric Psychiatric: appropriate mood/affect, intact judgment & insight - Neurologic Neurologic: CNII-XII intact, moves all extremities Plan Activity: advance as tolerated Weight Bearing Status: Weight Bear as Tolerated Follow up with: BOLA LOVING MD [Staff Physician] - 7 Days (Follow up in our [place] office with Dr. Loving on 10/08/2018 @ 3:15PM.) PRIMARY CAREMD [Referring] - 3-5 Days Prescriptions: Aspirin [Aspirin BABY CHEW TAB] 81 mg PO DAILY #30 tab.chew Carvedilol [Coreg] 12.5 mg PO BID #60 tablet Famotidine [Pepcid] 20 mg PO DAILY #30 tablet
--- NOTE | 2018-10-07 10:51 | Progress Note ---
Assessment and Plan Acute Kidney Injury possibly prerenal in setting of diuretics, ARBs, ? cardiorenal syndrome, r/o obstruction: Hyperkalemia: - Renal function reviewed, SCr level stable at 1.5 - Lasix 40 mg IV daily and losartan 100 mg po daily has been on hold for now in setting of MEHRDAD (both stopped on 10/04/18), given slight worsening of congestion seen on CXR, will restart Lasix at 40 mg po daily - Urine lytes reviewed. No urine eosinophils noted. - Renal US- no obstruction - Renally dose meds - Drake Catheter: No - When discharged, patient is to follow-up with us in the office in 7 days of discharge Acute combined CHF: - S/p Echo showed EF 25-30%, moderate pulmonary HTN - CXR today showed- slight worsening congestion- can resume Lasix 40 mg po daily - On Coreg and ASA - Cardiology on board Hypernatremia, Resolved: - Serum sodium level was 143 today - BMP daily Malignant Hypertension: - Controlled on Coreg - Continue to monitor blood pressures Subjective Date of service: 10/07/18 Principal diagnosis: HF; cp Interval history: Patient seen standing up in hallway fully dressed. States there is difference in opinion concerning her heart and that she has concerns about it. States she is waiting for Dr. Sierra to see her today to voice her opinion and concerns. Objective - Vital Signs Vital signs: Vital Signs - 12hr 10/06/18 10/07/18 10/07/18 23:26 03:24 04:18 Temperature 98.4 F 97.8 F Pulse Rate 77 80 76 Respiratory 19 18 Rate Blood Pressure 133/72 132/73 O2 Sat by Pulse 91 94 Oximetry 10/07/18 08:16 Temperature 98.2 F Pulse Rate 76 Respiratory 18 Rate Blood Pressure 138/83 O2 Sat by Pulse 96 Oximetry - General Appearance General appearance: well-developed, appears stated age, fatigue EENT: ATNC, PERRL, hearing intact, vision intact Neck: no JVD, supple Respiratory: Present: Decreased Breath Sounds Cardiology: S1S2 Gastrointestinal: normoactive bowel sounds Integumentary: warm and dry Neurologic: alert and oriented x3 Musculoskeletal: other (No edema) - Lab 10/07/18 06:36 10/07/18 06:36 Most recent lab results Calcium 8.6 mg/dL (8.4-10.2) 10/07/18 06:36 Phosphorus 5.00 mg/dL (2.5-4.5) H 10/05/18 05:04 Magnesium 1.80 mg/dL (1.7-2.3) 10/05/18 05:04 111.2 mg/dL (0.1-20.0) H 10/05/18 08:30 112.4 mg/dL (0.1-20.0) H 10/05/18 08:30 28 mmol/L 10/05/18 08:30 28 mmol/L 10/05/18 08:30 28 mg/dL (5-11.8) H 10/05/18 08:30 Medications & Allergies - Medications Allergies/Adverse Reactions: Allergies No Known Allergies Allergy (Unverified 10/02/18 09:57) Home Medications: Home Medications Medication Instructions Recorded Confirmed Last Taken Type Aspirin [Aspirin BABY CHEW TAB] 81 mg PO DAILY #30 tab.chew 10/07/18 Unknown Rx Carvedilol [Coreg] 12.5 mg PO BID #60 tablet 10/07/18 Unknown Rx Famotidine [Pepcid] 20 mg PO DAILY #30 tablet 10/07/18 Unknown Rx Active Medications: Generic Name Dose Route Start Last Admin Trade Name Freq PRN Reason Stop Dose Admin Acetaminophen 650 mg 10/02/18 22:28 Tylenol PO Q4H PRN Pain MILD(1-3)/Fever >100.5/[place] Aspirin 81 mg 10/02/18 20:00 10/06/18 09:33 Baby Aspirin PO 81 mg DAILY SUAD Administration Carvedilol 12.5 mg 10/05/18 22:00 10/06/18 22:26 Coreg PO 12.5 mg BID SUAD Administration Famotidine 20 mg 10/05/18 10:00 10/06/18 09:33 Pepcid PO 20 mg DAILY SUAD Administration Hydromorphone HCl 0.5 mg 10/02/18 19:19 Dilaudid IV Q3H PRN Pain , Severe (7-10) Ondansetron HCl 4 mg 10/02/18 22:28 Zofran IV Q8H PRN Nausea And Vomiting Oxycodone/Acetaminophen 1 tab 10/02/18 22:28 Percocet 5/325 PO Q6H PRN Pain, Moderate (4-6) Sodium Chloride 10 ml 10/03/18 10:00 10/06/18 22:28 Sodium Chloride Flush Syringe 10 Ml IV 10 ml BID SUAD Administration Sodium Chloride 10 ml 10/02/18 22:28 Sodium Chloride Flush Syringe 10 Ml IV PRN PRN LINE FLUSH
[2018-10-07] MEDS: BABY ASPIRIN PO SCH ×2 (11:58→12:35)
[2018-10-07] MEDS: COREG PO SCH ×2 (11:58→12:34)
[2018-10-07] MEDS: SODIUM CHLORIDE FLUSH SYRINGE 10 ML IV SCH (11:58)
[2018-10-07] MEDS: PEPCID PO SCH ×2 (11:58→12:35)
[2018-10-07] MEDS: LASIX PO SCH ×2 (12:02→12:35)
[2018-10-07 12:35] VITALS: BP 138/85
== END 2018-10-07 12:30 | disposition home or self-care (01) | DRG 291 ==
LOC: ED 09:51 → 4A 11:56
PROVIDERS: ADMIT Internal Medicine; ATTEND Hospitalist
PROC: 4A033R1 Measurement of Arterial Saturation, Peripheral, Percutaneous Approach (ICD-10-PCS; principal; 2018-10-02)
DX: I11.0 Hypertensive heart disease with heart failure (principal); N17.0 Acute kidney failure with tubular necrosis; E87.0 Hyperosmolality and hypernatremia; I16.1 Hypertensive emergency; I50.43 Acute on chronic combined systolic (congestive) and diastolic (congestive) heart failure; I42.0 Dilated cardiomyopathy; R09.02 Hypoxemia; E87.5 Hyperkalemia; I27.20 Pulmonary hypertension, unspecified; E66.9 Obesity, unspecified; Z68.36 Body mass index [BMI] 36.0-36.9, adult; Z82.49 Family history of ischemic heart disease and other diseases of the circulatory system; Z79.82 Long term (current) use of aspirin; Z71.3 Dietary counseling and surveillance
CPT/HCPCS: 36415; 71045; 76770; 78452; 80048; 80053; 80076; 81001; 81015; 82043; 82550; 82553; 82570; 82803; 82962; 83036; 83735; 83880; 83970; 84100; 84156; 84300; 84439; 84443; 84484; 84520; 85025; 85027; 85610; 85730; 89050; 93005; 93010; 93017; 93306; 94760; 99406; G0378; A9502; J1940; J2785; J7040